=== PATIENT | female | born 2000 | race Two or more races ===

== ENCOUNTER 2022-02-01 19:26 | Observation (INO) ==
[2022-02-01 20:26] LABS: Basophils # (auto) 0.09 K/uL (0-0.2); Eosinophils # (auto) 0.07 K/uL (0-0.50); Eosinophils % (auto) 0.8 %; Hematocrit (blood only) 38.6 % (34.1-44.9); Hemoglobin 12.5 g/dl (12.0-16.0); Immature Granulocytes # (auto) 0.01 K/uL (0.00-0.02); Immature Granulocytes % (auto) 0.1 %; Lymphocytes # (auto) 2.79 K/uL (1.2-3.4); Lymphocytes % (auto) 30.9 %; Mean Corpuscular Hemoglobin 26.5 pg (25.0-34.0); Mean Corpuscular Hgb Conc 32.4 g/dL (32.0-36.0); Mean Corpuscular Volume 81.8 fL (80.0-100.0); Mean Platelet Volume 10.9 fL (9.4-12.3); Monocytes # (auto) 0.97 K/uL (0.24-0.82); Monocytes % (auto) 10.8 %; Neutrophils # (auto) 5.09 K/uL (1.4-6.5); Neutrophils % (auto) 56.4 %; Platelet Count 284 K/uL (130-400); RDW Coefficient of Variation 13.1 % (11.5-14.5); Red Blood Count 4.72 M/uL (3.93-5.22); White Blood Count 9.02 K/ul (4.8-10.8)
[2022-02-01 20:42] LABS: INR 1.1 (0.9-1.1); Partial Thromboplastin Ratio 0.9; Partial Thromboplastin Time 25.6 Seconds (21.0-31.0); Prothrombin Time 11.3 Seconds (9.0-12.0)
[2022-02-01 20:51] LABS: Albumin Globulin Ratio 1.9 (0.9-2); Albumin Level 4.9 gm/dl (3.4-5.0); BUN Creatinine Ratio 8.9 (10-20); Bilirubin,Total 0.5 mg/dl (0.2-1.0); Calcium 9.3 mg/dl (8.5-10.1); Creatinine Clr Calc Pharmacy 98.1 ml/min; Est GFR (African American) 124.9 ml/min; Est GFR (Non-African American) 107.8 ml/min; Globulin 2.6 gm/dl (2.5-4.0); Potassium 3.5 mmol/L (3.5-5.1); Total Protein 7.5 gm/dl (6.0-8.3)
[2022-02-01 21:03] LABS: Troponin I High Sensitivity 65.7 pg/ml (0-14)
[2022-02-01] MEDS ORDERED: ASPIRIN CHEW 324 MG PO STA (21:17)
--- NOTE | 2022-02-01 21:26 | Emergency Department Note ---
Impression & Plan Chest pressure, Elevated troponin I level ED Provider Note Provider: German Kim MD DATE OF SERVICE: 02/01/2022 CHIEF COMPLAINT: Chest pressure, shortness of breath HISTORY OF PRESENT ILLNESS: Patient is a 21-year-old female otherwise healthy presenting today with the onset since she woke this morning some pressure in her chest. States it was fairly heavy pressure earlier with some associated shortness of breath. Denies recent URI symptoms. States she has been under some stress. Denies leg swelling or recent travel. Denies abdominal upset. Patient states the pressure has decreased some. Denies a history of heart issues. Not on control or OCPs. REVIEW OF SYSTEMS: A total of 10 review of systems was obtained and negative except as stated above in the HPI. PAST MEDICAL HISTORY: As noted above MEDICATIONS: Current prescription medication SOCIAL HISTORY: Vapes, denies other drug use or alcohol use. Originally from [facility] here for college PHYSICAL EXAM: GENERAL: alert and oriented in no acute distress on stretcher Head: normocephalic and atraumatic EYES: No injection, discharge or icterus. NECK: Trachea midline. ENT: Mucous membranes pink and moist. LUNGS: Airway patent. No retractions. Breath sounds clear with good air entry bilaterally. HEART: Regular rate and rhythm. No chest wall tenderness ABDOMEN: Soft and non-tender, without guarding or rebound. SKIN: Acyanotic, warm, dry, without rashes EXTREMITIES: Without swelling, tenderness or deformity NEUROLOGICAL: No focal deficits. No aphasia. No facial droop or slurred speech. Ambulatory. EK bpm. Normal sinus rhythm with sinus arrhythmia. No PVC or PAC. No acute ST segment elevation or depression with a QTC of 411. CONTINUOUS CARDIAC MONITORING: was ordered and showed a heart rate of 80s bpm in normal sinus rhythm Patient's laboratory studies and imaging reviewed. Differential includes Cardiac ischemia, aortic dissection, pulmonary embolism, pneumothorax, pneumonia, pericarditis, myocarditis, esophageal rupture, GERD, cholecystitis, pancreatitis, musculoskeletal, as well as other pathologies. IMPRESSION/MEDICAL DECISION MAKING: Patient with some chest pressure. No significant cardiac risk factors or PE risk factors related. No denies recent URI symptoms or fevers. No abdominal symptoms reported. No leg swelling. Not hypoxic here significantly tachycardic or with significant arrhythmia. EKG is reassuring. Blood work here is generally reassuring as well without significant anemia or leukocytosis. Troponin however is elevated to 65. In this young and healthy thin 21-year-old unsure of this exact etiology. Could represent possibly myocarditis but no evidence of heart failure and would seem highly atypical for ACS. We will complete a CT of the chest to exclude PE as a possible inciting event. Does not seem to be significantly hypotensive or dehydrated to induce a demand state. Respiratory viral panel was sent. Given some aspirin here. CT report reviewed. Will bring to the hospital for further evaluation given the elevated troponin trending and work-up. DIAGNOSIS: Chest pressure, elevated troponin DISPOSITION: Hospitalist will evaluate Patient was agreeable with this plan. Preliminary Findings Only See Final Report For Complete Findings CTA CHEST: There is no evidence for PE No acute airspace disease or effusions The heart size is normal Radiologist: Zachary Simmons MD Study ready at 23:07 and initial results transmitted at 23:24 Past Med/Surg History Social History Smoking Status: Current every day smoker Tobacco Type: E-cigarettes / Vaping Preferred Language: Guamanian Feels Safe at Home: Yes Allergies Allergies Allergy/AdvReac Type Severity Reaction Status Date / Time No Known Allergies Allergy Unverified 02/02/22 00:32 Home Meds Home Medications Medication Instructions Recorded Confirmed Sugarbear Collagen 1 tab PO 2XWK 02/02/22 02/02/22 Results & Data (ED) Vital Signs Vital Signs - 24 hr 02/01/22 19:33 02/01/22 20:58 02/01/22 20:58 Temperature 36.5 C Temperature Source Temporal Artery Scan Pulse Rate 104 H Pulse Rate [Finger] 75 Pulse Rhythm [Finger] Regular Pulse Strength [Finger] Normal Respiratory Rate 18 18 Respiratory Effort / Characteristics Non-Labored Spontaneous Respiratory Depth Normal Normal Respiratory Pattern Regular Blood Pressure 120/72 Blood Pressure [Right Arm] 107/66 Blood Pressure Mean 88 Blood Pressure Mean [Right Arm] 79 Blood Pressure Position [Right Arm] Pulse Oximetry 100 98 98 Oxygen Delivery Method Room Air Room Air Room Air Sepsis New/Unexplained Change in Mental Status N/A Sepsis Action Taken by Nursing No Action Required 02/01/22 22:10 02/01/22 23:20 Temperature Temperature Source Pulse Rate Pulse Rate [Finger] 86 88 Pulse Rhythm [Finger] Regular Pulse Strength [Finger] Normal Respiratory Rate 19 16 Respiratory Effort / Characteristics Non-Labored Spontaneous Non-Labored Spontaneous Respiratory Depth Normal Normal Respiratory Pattern Regular Blood Pressure Blood Pressure [Right Arm] 110/57 L 113/66 Blood Pressure Mean Blood Pressure Mean [Right Arm] 74 81 Blood Pressure Position [Right Arm] Sitting Pulse Oximetry 98 99 Oxygen Delivery Method Sepsis New/Unexplained Change in Mental Status Sepsis Action Taken by Nursing Laboratory Data Result diagrams: 02/01/22 20:03 02/01/22 20:03 Lab Results 02/01/22 02/01/22 02/01/22 Range/Units 20:03 20:03 20:03 WBC 9.02 (4.8-10.8) K/ul RBC 4.72 (3.93-5.22) M/uL Hgb 12.5 (12.0-16.0) g/dl Hct 38.6 (34.1-44.9) % MCV 81.8 (80.0-100.0) fL MCH 26.5 (25.0-34.0) pg MCHC 32.4 (32.0-36.0) g/dL RDW Std Deviation 39.0 (36.4-46.3) fL RDW Coeff of Tony 13.1 (11.5-14.5) % Plt Count 284 (130-400) K/uL MPV 10.9 (9.4-12.3) fL Immature Gran % (Auto) 0.1 % Neut % (Auto) 56.4 % Lymph % (Auto) 30.9 % [place] % (Auto) 10.8 % Eos % (Auto) 0.8 % Baso % (Auto) 1.0 % Neut # (Auto) 5.09 (1.4-6.5) K/uL Lymph # (Auto) 2.79 (1.2-3.4) K/uL [place] # (Auto) 0.97 H (0.24-0.82) K/uL Eos # (Auto) 0.07 (0-0.50) K/uL Baso # (Auto) 0.09 (0-0.2) K/uL Immature Gran # (Auto) 0.01 (0.00-0.02) K/uL PT 11.3 (9.0-12.0) Seconds INR 1.1 (0.9-1.1) APTT 25.6 (21.0-31.0) Seconds PTT Ratio 0.9 Sodium 138 (136-145) mmol/L Potassium 3.5 (3.5-5.1) mmol/L Chloride 103 (98-107) mmol/L Carbon Dioxide 28 (21-32) mmol/L Anion Gap 7 (3-11) BUN 7 (6-23) mg/dl Creatinine 0.79 (0.6-1.2) mg/dl Est Cr Clr Drug Dosing 98.1 ml/min Est GFR ( Amer) 124.9 ml/min Est GFR (Non-Af Amer) 107.8 ml/min BUN/Creatinine Ratio 8.9 L (10-20) Glucose 91 (70-99(Fasting)) mg/dl Calcium 9.3 (8.5-10.1) mg/dl Total Bilirubin 0.5 (0.2-1.0) mg/dl AST 14 (13-39) U/L ALT 7 (7-52) U/L Alkaline Phosphatase 63 (34-104) U/L Troponin I High Sens 65.7 H* (0-14) pg/ml Total Protein 7.5 (6.0-8.3) gm/dl Albumin 4.9 (3.4-5.0) gm/dl Globulin 2.6 (2.5-4.0) gm/dl Albumin/Globulin Ratio 1.9 (0.9-2) HCG, Qual (Negative) Adenovirus (PCR) (NotDetected) B. pertussis DNA (PCR) (NotDetected) B.parapertussis DNA PCR (NotDetected) C. pneumoniae DNA (PCR) (NotDetected) Coronavirus OC43 (PCR) (NotDetected) Coronavirus HKU1 (PCR) (NotDetected) Coronavirus 229E (PCR) (NotDetected) SARS-CoV-2 (PCR) (NotDetected) Coronavirus NL63 (PCR) (NotDetected) Human Metapneumovir PCR (NotDetected) Influenza Type A (PCR) (NotDetected) Influenza Type B (PCR) (NotDetected) M. pneumoniae (PCR) (NotDetected) Parainfluenza 1 (PCR) (NotDetected) Parainfluenza 2 (PCR) (NotDetected) Parainfluenza 3 (PCR) (NotDetected) Parainfluenza 4 (PCR) (NotDetected) RSV (PCR) (NotDetected) Entero/Rhino (PCR) (NotDetected) 02/01/22 02/01/22 Range/Units 20:03 21:26 WBC (4.8-10.8) K/ul RBC (3.93-5.22) M/uL Hgb (12.0-16.0) g/dl Hct (34.1-44.9) % MCV (80.0-100.0) fL MCH (25.0-34.0) pg MCHC (32.0-36.0) g/dL RDW Std Deviation (36.4-46.3) fL RDW Coeff of Tony (11.5-14.5) % Plt Count (130-400) K/uL MPV (9.4-12.3) fL Immature Gran % (Auto) % Neut % (Auto) % Lymph % (Auto) % [place] % (Auto) % Eos % (Auto) % Baso % (Auto) % Neut # (Auto) (1.4-6.5) K/uL Lymph # (Auto) (1.2-3.4) K/uL [place] # (Auto) (0.24-0.82) K/uL Eos # (Auto) (0-0.50) K/uL Baso # (Auto) (0-0.2) K/uL Immature Gran # (Auto) (0.00-0.02) K/uL PT (9.0-12.0) Seconds INR (0.9-1.1) APTT (21.0-31.0) Seconds PTT Ratio Sodium (136-145) mmol/L Potassium (3.5-5.1) mmol/L Chloride (98-107) mmol/L Carbon Dioxide (21-32) mmol/L Anion Gap (3-11) BUN (6-23) mg/dl Creatinine (0.6-1.2) mg/dl Est Cr Clr Drug Dosing ml/min Est GFR ( Amer) ml/min Est GFR (Non-Af Amer) ml/min BUN/Creatinine Ratio (10-20) Glucose (70-99(Fasting)) mg/dl Calcium (8.5-10.1) mg/dl Total Bilirubin (0.2-1.0) mg/dl AST (13-39) U/L ALT (7-52) U/L Alkaline Phosphatase (34-104) U/L Troponin I High Sens (0-14) pg/ml Total Protein (6.0-8.3) gm/dl Albumin (3.4-5.0) gm/dl Globulin (2.5-4.0) gm/dl Albumin/Globulin Ratio (0.9-2) HCG, Qual Negative (Negative) Adenovirus (PCR) Not Detected (NotDetected) B. pertussis DNA (PCR) Not Detected (NotDetected) B.parapertussis DNA PCR Not Detected (NotDetected) C. pneumoniae DNA (PCR) Not Detected (NotDetected) Coronavirus OC43 (PCR) Not Detected (NotDetected) Coronavirus HKU1 (PCR) Not Detected (NotDetected) Coronavirus 229E (PCR) Not Detected (NotDetected) SARS-CoV-2 (PCR) Not Detected (NotDetected) Coronavirus NL63 (PCR) Not Detected (NotDetected) Human Metapneumovir PCR Not Detected (NotDetected) Influenza Type A (PCR) Not Detected (NotDetected) Influenza Type B (PCR) Not Detected (NotDetected) M. pneumoniae (PCR) Not Detected (NotDetected) Parainfluenza 1 (PCR) Not Detected (NotDetected) Parainfluenza 2 (PCR) Not Detected (NotDetected) Parainfluenza 3 (PCR) Not Detected (NotDetected) Parainfluenza 4 (PCR) Not Detected (NotDetected) RSV (PCR) Not Detected (NotDetected) Entero/Rhino (PCR) Not Detected (NotDetected) Administered Medications Discontinued Medications Aspirin (Aspirin Chew 324 Mg) 324 mg PO NOW STA Stop: 02/01/22 21:18 Last Admin: 02/01/22 21:24 Dose: 324 mg Documented By: TRISTON Ioversol (Optiray 300 500ml) 116 ml IV ONCE ONE Stop: 02/01/22 21:41 Last Admin: 02/01/22 21:41 Dose: 116 ml Documented By: SERGIO Discharge Plan Visit Data Chief Complaint: Chest Pain Stated Complaint: CHEST PAIN, BREATHING DIFFICULTY ED Provider: German Kim Discharge Problem: Chest pressure, Elevated troponin I level Forms Stand Alone Forms: [employer] Prescriptions Prescriptions: No Action Sugarbear Collagen 1 tab PO 2XWK Referrals Referrals: PCP,NO [Physician] -
[2022-02-01] MEDS ORDERED: OPTIRAY 300 500mL IV ONE (21:40)
[2022-02-01 21:54] LABS: Pregnancy Test, Serum Negative (Negative)
[2022-02-01 22:31] LABS: Adenovirus PCR Not Detected (NotDetected); Bordetella parapertussis PCR Not Detected (NotDetected); Bordetella pertussis PCR Not Detected (NotDetected); Chlamydia pneumoniae PCR Not Detected (NotDetected); Coronavirus 229E PCR Not Detected (NotDetected); Coronavirus CoV-2 (COVID19)PCR Not Detected (NotDetected); Coronavirus HKU1 PCR Not Detected (NotDetected); Coronavirus NL63 PCR Not Detected (NotDetected); Coronavirus OC43PCR Not Detected (NotDetected); Human Metapneumovirus PCR Not Detected (NotDetected); Influenza A PCR Not Detected (NotDetected); Influenza B PCR Not Detected (NotDetected); Mycoplasma pneumoniae PCR Not Detected (NotDetected); Parainfluenza Virus 1 PCR Not Detected (NotDetected); Parainfluenza Virus 2 PCR Not Detected (NotDetected); Parainfluenza Virus 3 PCR Not Detected (NotDetected); Parainfluenza Virus 4 PCR Not Detected (NotDetected); Respiratory Syncytial VirusPCR Not Detected (NotDetected); Rhinovirus/Enterovirus PCR Not Detected (NotDetected)
--- NOTE | 2022-02-02 01:01 | History & Physical Report ---
Date of Service February 02, 2022 Assessment & Plan (1) Chest pressure: Plan: Patient is a 21 yo female with no significant past medical history admitted to [facility] on 02/02/22 due to chest pressure and elevated troponin. Chest pressure with elevated HS-troponin - Patient woke up this morning with chest pressure that improved throughout the day - She is currently pain free; does report some persistent SOB described as "needing to take a deep breath in 2 stages" - Chest CTA with no evidence of PE - Patient does admit to frequent vape use -- discussed importance of vape cessation with patient - HS-troponin in the ER 65.7 --> repeat on admission 148.8 - EKG in ER with NSR, rate 83, no acute ST or T wave changes - Given increase in troponin on admission, will repeat EKG now - Will continue to trend troponin to peak - TTE ordered - Monospot w/ reflex to EBV ordered - Patient has not seen physician in the [place] (she is from [facility], getting degree at [employer]) -- will get lipid profile, A1c, and TSH in AM for complet e work up - Monitor CBC and BMP - Cardiology consulted - Admit to tele for continuous cardiac monitoring (2) Elevated troponin I level: History of Present Illness Chief Complaint: chest pain Primary Care Provider: [facility] Patient is a 21 yo female with no significant past medical hx who presented with complaint of chest pain. Patient states that she woke up this morning around 0700 with substernal chest pressure. At worst, the pressure was rated at a 4/10. She did not take any medication including no Tylenol nor Ibuprofen for her symptoms. Patient did have associated SOB with the pressure which she describes as inability to take a deep breath. She notes that she is typically very active and regularly engages in high intensity cardio at the gym. However, over the past couple of days, patient has had exertional fatigue and SOB with minimal activity, like walking up a flight of stairs. She denies recent illness. Patient has no other symptoms including fever, chills, cough, abdominal pain, n ausea, vomiting, urinary symptoms, REYES, lightheadedness, dizziness, extremity pain, or extremity swelling. Patient lives with a roommate who has not had similar symptoms. 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 She is from [facility], which is where all of her family is still residing. Patient does report vaping but otherwise denies drug use including marijuana use. Denies alcohol use. Patient is not sexually active. She is not on control including no hx of OCP use. She has had no recent travel including no long car rides or flights. Patient denies use of creatine or protein powder. She does report drinking Red Bull occasionally but no other reported caffeine use. Patient's mother has a cardiac hx significant for abnormal EKG and low heart rate which required pacemaker placement in her early 40s; patient is not aware of the actual diagnosis. There is no other family hx of cardiac problems. In the ER, patient was noted to have an HS-troponin at 65.7. She did receive 324mg ASA. Chest CTA with no evidence for PE. CBC unremarkable w/o leukocytosis or anemia. CMP unremarkable w/o electrolyte abnormalities. HCG negative. [employer] viral panel negative including COVID negative. Allergies Allergy/AdvReac Type Severity Reaction Status Date / Time No Known Allergies Allergy Unverified 02/02/22 00:32 Home Medications Medication Instructions Recorded Confirmed Type Sugarbear Collagen 1 tab PO 2XWK 02/02/22 02/02/22 History colchicine 0.6 mg tablet 0.6 mg PO DAILY 30 days #30 tabs 02/02/22 Rx Past Med/Surg History Social History Smoking Status: Current every day smoker Tobacco Type: E-cigarettes / Vaping Hx Alcohol Use: No Hx Substance Use: No Preferred Language: Indonesian Communication Ability: Effective Alloy Weigher Required: No Beliefs That Will Affect Care: Spiritism Current Living Situation: Other Current Living Situation Comment: roommates Feels Safe at Home: Yes Assistive Devices: None Review of Systems Review of Systems: See HPI Physical Exam Physical Exam: GENERAL: No acute distress. Well developed and well nourished. Vital signs reviewed as above. EYES: PERRLA. EOMI. Anicteric sclerae. HENT: Moist mucous membranes. No pharyngeal erythema or exudates. RESPIRATORY: Clear to auscultation bilaterally. No wheezing, rales, or rhonchi. CARDIOVASCULAR: Regular rate and rhythm. No murmurs. No JVD. ABDOMEN: Soft, non-tender and non-distended. Normal bowel sounds. EXTREMITIES: No edema. Non-tender. SKIN: Warm, dry. NEUROLOGIC: A/O x3. Normal speech. No focal neurological deficits. 5/5 strength in BUE and BLE. PSYCHIATRIC: Cooperative. Appropriate mood and affect. Results & Data Results & Data ([facility]) Vital Signs (Past 12 Hours) Vital Signs Temp Pulse Pulse Resp BP BP Pulse Ox 02/01/22 23:20 88 16 113/66 99 02/01/22 22:10 86 19 110/57 L 98 02/01/22 20:58 75 18 107/66 98 02/01/22 20:58 98 02/01/22 19:33 36.5 C 104 H 18 120/72 100 O2 Del Method 02/01/22 23:20 02/01/22 22:10 02/01/22 20:58 Room Air 02/01/22 20:58 Room Air 02/01/22 19:33 Room Air Laboratory Results 02/01/22 02/01/22 02/01/22 Range/Units 23:54 21:26 20:03 WBC (4.8-10.8) K/ul RBC (3.93-5.22) M/uL Hgb (12.0-16.0) g/dl Hct (34.1-44.9) % MCV (80.0-100.0) fL MCH (25.0-34.0) pg MCHC (32.0-36.0) g/dL RDW Std Deviation (36.4-46.3) fL RDW Coeff of Tony (11.5-14.5) % Plt Count (130-400) K/uL MPV (9.4-12.3) fL Immature Gran % (Auto) % Neut % (Auto) % Lymph % (Auto) % [place] % (Auto) % Eos % (Auto) % Baso % (Auto) % Neut # (Auto) (1.4-6.5) K/uL Lymph # (Auto) (1.2-3.4) K/uL [place] # (Auto) (0.24-0.82) K/uL Eos # (Auto) (0-0.50) K/uL Baso # (Auto) (0-0.2) K/uL Immature Gran # (Auto) (0.00-0.02) K/uL PT (9.0-12.0) Seconds INR (0.9-1.1) APTT (21.0-31.0) Seconds PTT Ratio Sodium (136-145) mmol/L Potassium (3.5-5.1) mmol/L Chloride (98-107) mmol/L Carbon Dioxide (21-32) mmol/L Anion Gap (3-11) BUN (6-23) mg/dl Creatinine (0.6-1.2) mg/dl Est Cr Clr Drug Dosing ml/min Est GFR ( Amer) ml/min Est GFR (Non-Af Amer) ml/min BUN/Creatinine Ratio (10-20) Glucose (70-99(Fasting)) mg/dl Calcium (8.5-10.1) mg/dl Total Bilirubin (0.2-1.0) mg/dl AST (13-39) U/L ALT (7-52) U/L Alkaline Phosphatase (34-104) U/L Troponin I High Sens Pending (0-14) pg/ml Total Protein (6.0-8.3) gm/dl Albumin (3.4-5.0) gm/dl Globulin (2.5-4.0) gm/dl Albumin/Globulin Ratio (0.9-2) HCG, Qual Negative (Negative) Adenovirus (PCR) Not Detected (NotDetected) B. pertussis DNA (PCR) Not Detected (NotDetected) B.parapertussis DNA PCR Not Detected (NotDetected) C. pneumoniae DNA (PCR) Not Detected (NotDetected) Coronavirus OC43 (PCR) Not Detected (NotDetected) Coronavirus HKU1 (PCR) Not Detected (NotDetected) Coronavirus 229E (PCR) Not Detected (NotDetected) SARS-CoV-2 (PCR) Not Detected (NotDetected) Coronavirus NL63 (PCR) Not Detected (NotDetected) Human Metapneumovir PCR Not Detected (NotDetected) Influenza Type A (PCR) Not Detected (NotDetected) Influenza Type B (PCR) Not Detected (NotDetected) M. pneumoniae (PCR) Not Detected (NotDetected) Parainfluenza 1 (PCR) Not Detected (NotDetected) Parainfluenza 2 (PCR) Not Detected (NotDetected) Parainfluenza 3 (PCR) Not Detected (NotDetected) Parainfluenza 4 (PCR) Not Detected (NotDetected) RSV (PCR) Not Detected (NotDetected) Entero/Rhino (PCR) Not Detected (NotDetected) 02/01/22 02/01/22 02/01/22 Range/Units 20:03 20:03 20:03 WBC 9.02 (4.8-10.8) K/ul RBC 4.72 (3.93-5.22) M/uL Hgb 12.5 (12.0-16.0) g/dl Hct 38.6 (34.1-44.9) % MCV 81.8 (80.0-100.0) fL MCH 26.5 (25.0-34.0) pg MCHC 32.4 (32.0-36.0) g/dL RDW Std Deviation 39.0 (36.4-46.3) fL RDW Coeff of Tony 13.1 (11.5-14.5) % Plt Count 284 (130-400) K/uL MPV 10.9 (9.4-12.3) fL Immature Gran % (Auto) 0.1 % Neut % (Auto) 56.4 % Lymph % (Auto) 30.9 % [place] % (Auto) 10.8 % Eos % (Auto) 0.8 % Baso % (Auto) 1.0 % Neut # (Auto) 5.09 (1.4-6.5) K/uL Lymph # (Auto) 2.79 (1.2-3.4) K/uL [place] # (Auto) 0.97 H (0.24-0.82) K/uL Eos # (Auto) 0.07 (0-0.50) K/uL Baso # (Auto) 0.09 (0-0.2) K/uL Immature Gran # (Auto) 0.01 (0.00-0.02) K/uL PT 11.3 (9.0-12.0) Seconds INR 1.1 (0.9-1.1) APTT 25.6 (21.0-31.0) Seconds PTT Ratio 0.9 Sodium 138 (136-145) mmol/L Potassium 3.5 (3.5-5.1) mmol/L Chloride 103 (98-107) mmol/L Carbon Dioxide 28 (21-32) mmol/L Anion Gap 7 (3-11) BUN 7 (6-23) mg/dl Creatinine 0.79 (0.6-1.2) mg/dl Est Cr Clr Drug Dosing 98.1 ml/min Est GFR ( Amer) 124.9 ml/min Est GFR (Non-Af Amer) 107.8 ml/min BUN/Creatinine Ratio 8.9 L (10-20) Glucose 91 (70-99(Fasting)) mg/dl Calcium 9.3 (8.5-10.1) mg/dl Total Bilirubin 0.5 (0.2-1.0) mg/dl AST 14 (13-39) U/L ALT 7 (7-52) U/L Alkaline Phosphatase 63 (34-104) U/L Troponin I High Sens 65.7 H* (0-14) pg/ml Total Protein 7.5 (6.0-8.3) gm/dl Albumin 4.9 (3.4-5.0) gm/dl Globulin 2.6 (2.5-4.0) gm/dl Albumin/Globulin Ratio 1.9 (0.9-2) HCG, Qual (Negative) Adenovirus (PCR) (NotDetected) B. pertussis DNA (PCR) (NotDetected) B.parapertussis DNA PCR (NotDetected) C. pneumoniae DNA (PCR) (NotDetected) Coronavirus OC43 (PCR) (NotDetected) Coronavirus HKU1 (PCR) (NotDetected) Coronavirus 229E (PCR) (NotDetected) SARS-CoV-2 (PCR) (NotDetected) Coronavirus NL63 (PCR) (NotDetected) Human Metapneumovir PCR (NotDetected) Influenza Type A (PCR) (NotDetected) Influenza Type B (PCR) (NotDetected) M. pneumoniae (PCR) (NotDetected) Parainfluenza 1 (PCR) (NotDetected) Parainfluenza 2 (PCR) (NotDetected) Parainfluenza 3 (PCR) (NotDetected) Parainfluenza 4 (PCR) (NotDetected) RSV (PCR) (NotDetected) Entero/Rhino (PCR) (NotDetected) Diagnostic Findings [facility] Patient: MERARI YODER (Female) : 2 Status: ER Date: 02/01/22 21:48 Room #: History: PE, +trop, CP/sob Slices: [id number] Priors: Tech: Riley Regalado @ [phone] Exams: CTA CHEST Contrast: IV Amt: 116 Accession Numbers: [id number] Referring Physician: DAVON ANGULO Preliminary Findings Only See Final Report For Complete Findings CTA CHEST: There is no evidence for PE No acute airspace disease or effusions The heart size is normal Radiologist: Zachary Simmons MD Study ready at 23:07 and initial results transmitted at 23:24 *This report constitutes a preliminary interpretation only. Non-acute findings felt to be unrelated to the clinical presentation may not be discussed in this report. The study will be interpreted and a final report will be generated by the local Radiologist the following shift. To reach the hospital radiology department call [phone]. If a discrepancy is found between the preliminary and final interpretations of this study, please notify us via our Client Portal at [email or web address]. You can also fax this report with a description of the discrepancy, or include the final report, to our daytime fax number [phone]. If faxing, please indicate the severity of discrepancy using one of the following categories: [ ] 1 - Agree/Informational [ ] 2 - Unlikely to Affect Management [ ] 3 - Possible Eventual Change of Management [ ] 4 - Probable Immediate Change of Management For all other patient related information, please fax us at [phone]. [id number] ECG Indication: chest pain Rate (beats per minute): 83 Rhythm: normal sinus Findings: no ST elevation Comparison ECG Date: no prior available Supervising Physician Co-Signing Physician Notes Attending addendum: I have physically seen this patient, have supervised the medical residents activities, and agree with the H&P unless as otherwise noted. Assessment and Plan: Elevated troponin/chest pressure- The patient will be admitted to telemetry for serial cardiac enzymes, serial EKG's, cardiac rhythm monitoring and a 2-D echocardiogram with Dopplers. Troponin 65.7, with repeat increased to 148.8 The patient will be admitted to telemetry for serial cardiac enzymes, serial EKG's, cardiac rhythm monitoring and a 2-D echocardiogram with Dopplers. Viral panel negative, but order a Monospot with reflex History of vaping, cessation encouraged Remaining orders and notations as noted Resident Activity Tracking Resident Involvement: Resident Care Provided Care Provided: Adult Hospital Medicine
[2022-02-02] MEDS ORDERED: ACETAMINOPHEN 325 MG TAB PO PRN (03:27)
[2022-02-02] MEDS ORDERED: ALUMINUM/MAGNESIUM SUSP 30 ML UDC PO PRN (03:27)
[2022-02-02] MEDS ORDERED: SODIUM CHLORIDE 0.9% 1000ML 1,000 ML IV SCH (03:27)
[2022-02-02] MEDS ORDERED: ONDANSETRON INJ 2 MG/ML 2 ML VIAL IV PRN (03:27)
[2022-02-02 06:40] LABS: Hematocrit (blood only) 36.9 % (34.1-44.9); Hemoglobin 12.1 g/dl (12.0-16.0); Mean Corpuscular Hemoglobin 26.6 pg (25.0-34.0); Mean Corpuscular Hgb Conc 32.8 g/dL (32.0-36.0); Mean Corpuscular Volume 81.1 fL (80.0-100.0); Mean Platelet Volume 10.7 fL (9.4-12.3); Platelet Count 273 K/uL (130-400); RDW Coefficient of Variation 13.2 % (11.5-14.5); RDW Standard Deviation 38.7 fL (36.4-46.3); Red Blood Count 4.55 M/uL (3.93-5.22)
[2022-02-02 07:06] LABS: BUN Creatinine Ratio 14.3 (10-20); Calcium 8.7 mg/dl (8.5-10.1); Chol HDL Ratio 2.6 (0-5); Est GFR (African American) 149.7 ml/min; Est GFR (Non-African American) 129.1 ml/min; Potassium 3.7 mmol/L (3.5-5.1)
[2022-02-02 07:14] LABS: Troponin I High Sensitivity 120.9 pg/ml (0-14)
[2022-02-02 07:16] LABS: Thyroid Stimulating Hormone 8.866 uIu/ml (0.300-4.500)
[2022-02-02 07:38] LABS: Estimated Average Glucose 111 mg/dl; Hemoglobin A1C 5.5 % (4.5-5.6)
[2022-02-02 07:50] LABS: T4 Free Thyroxine 0.75 ng/dl (0.61-1.60)
--- NOTE | 2022-02-02 09:05 | CT Scan Report ---
CT ANGIOGRAPHY OF THE CHEST, PULMONARY EMBOLUS PROTOCOL CLINICAL HISTORY: PE, +trop, CP/sob COMPARISON STUDY: No previous studies for comparison. TECHNIQUE: Following IV administration of 116 mL of Optiray, helical axial images of the chest were o btained utilizing the pulmonary embolus protocol. Maximal intensity projections and sagittal and cor onal reformats were viewed on an independent 3D workstation. IV contrast was administered without co mplication. Automated exposure control was utilized for the study. A dose lowering technique was ut ilized adhering to the principles of ALARA. CT DOSE: 239.94 mGy.cm FINDINGS: No pulmonary emboli are identified. There is no thoracic aortic dissection. Size of the he art is normal. There is no pericardial effusion. There is no thoracic lymphadenopathy. No pneumothora x or pleural effusion is present. There is no consolidation to suggest pneumonia. Central airways are patent. No acute fracture or suspicious lesion within the visualized bony thorax is noted. Visualize d portions of the upper abdomen are unremarkable. IMPRESSION: 1. No pulmonary emboli identified. 2. No acute intrathoracic findings. ACT 112: Negative or not required by law. Electronically signed by: Max Mcgee M.D. 02/02/2022 9:02 AM
--- NOTE | 2022-02-02 09:58 | Discharge Summary ---
Date of Service February 02, 2022 Admission HPI Per Admitting Provider Patient is a 21 yo female with no significant past medical hx who presented with complaint of chest pain. Patient states that she woke up this morning around 0700 with substernal chest pressure. At worst, the pressure was rated at a 4/10. She did not take any medication including no Tylenol nor Ibuprofen for her symptoms. Patient did have associated SOB with the pressure which she describes as inability to take a deep breath. She notes that she is typically very active and regularly engages in high intensity cardio at the gym. However, over the past couple of days, patient has had exertional fatigue and SOB with minimal activity, like walking up a flight of stairs. She denies recent illness. Patient has no other symptoms including fever, chills, cough, abdominal pain, nausea, vomiting, urinary symptoms, REYES, lightheadedness, dizziness, extremity pain, or extremity swelling. Patient lives with a roommate who has not had similar symptoms. 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 She is from [place] [facility], which is where all of her family is still residing. Patient does report vaping but otherwise denies drug use including marijuana use. Denies alcohol use. Patient is not sexually active. She is not on control including no hx of OCP use. She has had no recent travel including no long car rides or flights. Patient denies use of creatine or protein powder. She does report drinking Red Bull occasionally but no other reported caffeine use. Patient's mother has a cardiac hx significant for abnormal EKG and low heart rate which required pacemaker placement in her early 40s; patient is not aware of the actual diagnosis. There is no other family hx of cardiac problems. In the ER, patient was noted to have an HS-troponin at 65.7. She did receive 324mg ASA. Chest CTA with no evidence for PE. CBC unremarkable w/o leukocytosis or anemia. CMP unremarkable w/o electrolyte abnormalities. HCG negative. Biofire viral panel negative including COVID negative. Admission Exam Per Admitting Provider GENERAL: No acute distress. Well developed and well nourished. Vital signs reviewed as above. EYES: PERRLA. EOMI. Anicteric sclerae. HENT: Moist mucous membranes. No pharyngeal erythema or exudates. RESPIRATORY: Clear to auscultation bilaterally. No wheezing, rales, or rhonchi. CARDIOVASCULAR: Regular rate and rhythm. No murmurs. No JVD. ABDOMEN: Soft, non-tender and non-distended. Normal bowel sounds. EXTREMITIES: No edema. Non-tender. SKIN: Warm, dry. NEUROLOGIC: A/O x3. Normal speech. No focal neurological deficits. 5/5 strength in BUE and BLE. PSYCHIATRIC: Cooperative. Appropriate mood and affect. Principal Diagnosis Viral myocarditis Discharge Exam GENERAL: No acute distress. Well developed and well nourished HEENT: Moist mucous membranes. Anicteric sclerae. RESPIRATORY: Clear to auscultation bilaterally. No wheezing, rales, or rhonchi. CARDIOVASCULAR: Regular rate and rhythm. No murmurs. No JVD. ABDOMEN: Soft, non-tender and non-distended. Normal bowel sounds. EXTREMITIES: No edema. Non-tender. SKIN: Warm, dry. PSYCHIATRIC: Cooperative. Appropriate mood and affect. Discharge Data Allergies Allergy/AdvReac Type Severity Reaction Status Date / Time No Known Allergies Allergy Unverified 02/02/22 00:32 Consultations 02/01/22 23:38 ED Decision to Admit Stat 02/02/22 03:27 Consult Cardiology Routine Ordered Studies 02/01/22 21:07 CT angio chest PE protocol Urgent Hospital Course (1) Chest pressure: Patient is a 21 yo female with no significant past medical history admitted to [facility] on 02/02/22 due to chest pressure and elevated troponin. Chest pressure with elevated HS-troponin -Troponin HS 66 on admission, peak at 150 with downtrend to 80s -Chest CTA, EKG, CXR unremarkable -Lipids, A1C unremarkable -Echocardiogram unremarkable -Cardiology consulted- suspect likely viral myocarditis/pericarditis, recommend colchicine and f/u in 2 weeks as outpatient -Pt's chest pain and dyspnea resolved on admission and did not recur during hospitalization -Discharged with script for colchicine x3 months Elevated TSH -TSH of 9 on admission, free T4 normal -Likely transient elevation due to stress/illness state -Repeat in 4 weeks as outpatient (2) Elevated troponin I level: Total Time Total Time Spent Total Time Spent (In Minutes): <30 Discharge Plan Discharge Items Patient Disposition: Home - Self-Care Reason For Visit: ELEVATED TROPONIN Discharge Diagnosis: Myocarditis Activity: Resume your previous activity Non-emergency contact: Primary Care Provider and Special Projects Coordinator Call non-emergency contact if: you have any medication questions, your symptoms worsen and your pain is worsening Follow-up/Referrals: Ricky Hernandez MD, PhD [Physician] - (2 week appointment f/u) [facility] [Primary Care Provider] - Diet: Regular Addtl Attending Provider Instructions: You were admitted to the hospital for chest pain. We concluded the chest pain was most likely due to a viral infection (sometimes there are no symptoms) which caused heart inflammation called viral myocarditis. This will resolve with time and does not leave permanent injury to the heart. I recommend you try to reduce your frequency of vaping. Vaping use can lead to lung injury which could leave some scarring of your lung tissue and cause breathing problems later in life. You had an elevated TSH level which may imply you have low thyroid hormone production. Please have TSH rechecked by [facility] in 4 weeks to determine if your thyroid is truly low or if it's just a temporary elevation from being ill with viral myocarditis. A discharge summary will be sent to [facility] to ensure continuity of care. Please bring this discharge summary with you to your next office appointment so that your provider can review it at that time. Follow-up appointments: Please make a follow-up appointment with [facility] 1 week after your discharge today. You will also follow up with cardiology in 2 weeks. They will call you to schedule this appointment. Medications: Your medication list has been reviewed and reconciled upon discharge to ensure accuracy and continuity of care. An updated list of all your medications is included with your hospital discharge paperwork. Please review this list closely, and make note of any changes. We sent a new medication called colchicine to [facility] pharmacy. This medication is useful in preventing further episodes of chest pain from heart inflammation. Please take two colchicine tablets today and then only one tablet daily starting tomorrow for the next 3 months. Take your medications as instructed; do not skip a dose of your medicines. Make sure all of your doctors know every medicine you are taking (including [id number] medicines, vitamins, and supplements). Call your primary care provider before taking any new medicines (including yeto-pcs-jpxcgvb medicines, vitamins, and supplements), because some of these may interact with your current medications, or may make your symptoms worse. Tell your primary care provider if you cannot afford your medications. CONTACT [facility] if you experience any of the following: Chest pain Difficulty breathing Abdominal pain Nausea/vomiting Lightheadedness Dizziness Difficulty following your treatment plan, or difficulty taking medications CALL 911 OR GO TO THE EMERGENCY DEPARTMENT if you experience any of the following: Sudden, severe abdominal pain or nausea/vomiting Severe chest pain, or chest pain that radiates (moves) to your jaw or arm Sudden, severe shortness of breath or difficulty breathing Thank you for allowing us to participate in your care. Pending Studies at Discharge: No Stand-Alone Forms: My [facility] [employer], Work/School Release, Smoking Cessation Medications and DC Order Prescriptions: New colchicine 0.6 mg tablet 0.6 mg PO DAILY 30 Days Qty: 30 3RF Rx Instructions: Please take 2 tablets today and then 1 tablet starting tomorrow for the next 3 months. Continued Sugarbear Collagen 1 tab PO 2XWK Discharge Orders: Discharge Order (Routine); Ordered 02/02/22 Ordered By: Maddie Delvalle Admission Data Admit Date/Time: 02/02/22 01:12 Attending Provider: Indio Chavez Admit Provider: Altagracia Kyle Primary Care Provider: [facility] Other Providers: Juno Sandy ; Valentín Calderon Other Interventions: Discharge Summary Assessment (RN) Last Done: 02/02/22 10:27 Supervising Physician Co-Signing Physician Notes I personally examined the patient and verified all guevara points of history and exam, discussed case, and agree with decision making with Dr Delvalle feeling better pain resolving really wants to go home vitals noted nad heent nc at mmm breathing unlabored no accessory muscles good effort skin no rashes no pallor or icterus myocarditis - improving. colchicine. discussed staying for ongoing monitoring and risks (including ) but she expressed good understanding of risk/benefit and opts to go home otherwise as above Resident Activity Tracking Resident Involvement: Resident Care Provided Care Provided: Adult Hospital Medicine
--- NOTE | 2022-02-02 11:45 | Cardiology Consultation ---
Date of Consultation February 02, 2022 Assessment & Plan (1) Chest pressure: Chest discomfort is somewhat pleuritic in nature. Awaiting official interpretation of the echocardiogram to exclude cardiomyopathy, pericardial effusion, segmental wall motion abnormality. Suspect that this does not fact represent myocarditis of unknown etiology. Could be triggered by vape or unknown infection. If the echo is unrevealing then would initiate colchicine and/or nonsteroidal for discomfort. She will need additional follow-up as an outpatient. If infectious agent identified then treat appropriately for that. Probably most prudent to keep her for 24 hours of observation to ensure that she does not have a fulminant/rapidly progressive case of myocarditis. Additional recommendations pending results of the echocardiogram. She will need outpatient follow-up appointment within 2 weeks of discharge. History of Present Illness Reason for Consultation: Chest pain, abnormal troponin Attending Physician: Indio Chavez DO History of Present Illness Is a pleasant 21-year-old female from [facility] who is studying [employer] at [employer]. She developed sudden onset chest pressure occurring after she stood up in the morning. She came to the emergency department where she was found to have elevated cardiac troponin. No ischemic EKG changes on the EKG. I was asked to see her for probable myocarditis. Patient uses vape inhalation device on a daily basis, multiple times daily with various vape cartridges, and has been doing this for the past 3 years with increasing frequency. She denies use of illicit drugs or alcohol. Occasionally uses caffeinated energy drinks. She denies any recent viral illnesses. She had a COVID vaccination over a year ago without adverse effect. Her roommate has not had any recent illnesses. Patient notes that when she lies down she does not have any chest discomfort but when she stands up she notes pressure in the left anterior chest. Other than position change, she cannot identify any alleviating or exacerbating factors. Currently, she feels well and is not experiencing any discomfort. She did undergo echocardiogram earlier this morning but this has not yet been interpreted. Reportedly, no abnormalities identified by electronic security technician. Patient denies any syncope, near syncope, orthopnea, PND, racing heartbeat, palpitations, or edema. Denies fevers, chills, cough, sputum production, dysuria, hematuria, abdominal discomfort, nausea, vomiting, or diarrhea. No numbness, tingling, weakness. Allergies Allergy/AdvReac Type Severity Reaction Status Date / Time No Known Allergies Allergy Unverified 02/02/22 00:32 Home Medications Medication Instructions Recorded Confirmed Type Sugarbear Collagen 1 tab PO 2XWK 02/02/22 02/02/22 History Patient History Social History Smoking Status: Current every day smoker Tobacco Type: E-cigarettes / Vaping Hx Alcohol Use: No Hx Substance Use: No Preferred Language: Polish Communication Ability: Effective Counselor Aid Required: No Beliefs That Will Affect Care: None Current Living Situation: Other Current Living Situation Comment: roommates Other Information That Helps Us Care for You: No Feels Safe at Home: Yes Safety Concerns: Feels Safe At This Time Assistive Devices: Contacts and Glasses Review of Systems Review of Systems: Negative x12 point review except as per HPI. Physical Exam Constitutional: WD/WN, vitals as above Eyes: PERRL, conjunctivae normal, anicteric sclerae ENMT: external ear and nose normal, oropharynx normal Neck: trachea midline, no thyromegaly Respiratory: normal respiratory effort, lungs clear to auscultation Cardiovascular: RRR, no murmur, no edema Neurologic: Cognition is intact. Speech is fluent. No tremor. Psychiatric: A+Ox3, euthymic affect Results & Data ([facility]) Vital Signs (Past 12 Hours) Vital Signs Temp Pulse Pulse Pulse Resp BP BP 02/02/22 11:17 36.6 C 91 H 17 117/74 02/02/22 10:27 36.7 C 88 83 18 110/62 106/62 02/02/22 10:25 79 02/02/22 07:47 36.7 C 88 18 110/62 02/02/22 03:42 75 02/02/22 03:27 02/02/22 03:30 36.7 C 76 16 114/66 02/02/22 02:22 83 14 106/62 Pulse Ox Pulse Ox O2 Del Method O2 Del Method 02/02/22 11:17 100 Room Air 02/02/22 10:27 98 02/02/22 10:25 02/02/22 07:47 98 Room Air 02/02/22 03:42 02/02/22 03:27 98 Room Air 02/02/22 03:30 98 Room Air 02/02/22 02:22 98 PG Care Time/CCT Total # of Minutes Spent Total Time Spent with Patient: Total time spent is greater than 50% in coordination of care (as documented) at patient's floor/unit and/or counseling patient: [place] [address] Inpt Consult Level 2 Patient Type New Diagnoses Chest pressure R07.89
--- NOTE | 2022-02-02 13:30 | XCELERA ---
[id number]
--- NOTE | 2022-02-02 14:24 | Electrocardiogram Report ---
Test Reason : Blood Pressure : / mmHG Vent. Rate : 083 BPM Atrial Rate : 083 BPM P-R Int : 136 ms QRS Dur : 074 ms QT Int : 350 ms P-R-T Axes : 075 077 068 degrees QTc Int : 411 ms Normal sinus rhythm with sinus arrhythmia Normal ECG No previous ECGs available Confirmed by Roger Montiel ([id number]) on 02/02/2022 2:23:53 PM Referred By: [facility] Confirmed By:Roger Montiel
--- NOTE | 2022-02-02 14:30 | Electrocardiogram Report ---
Test Reason : Blood Pressure : / mmHG Vent. Rate : 071 BPM Atrial Rate : 071 BPM P-R Int : 148 ms QRS Dur : 080 ms QT Int : 386 ms P-R-T Axes : 078 077 069 degrees QTc Int : 419 ms Normal sinus rhythm with sinus arrhythmia Normal ECG When compared with ECG of 01-FEB-2022 19:48, (unconfirmed) No significant change was found Confirmed by Roger Montiel ([id number]) on 02/02/2022 2:30:23 PM Referred By: [facility] Confirmed By:Roger Montiel
--- NOTE | 2022-02-02 16:48 | Billing Data ---
Date of Service February 02, 2022 Coding Level of Care Code 04376 OBS Care - Discharge
--- NOTE | 2022-02-02 20:35 | Billing Data ---
Date of Service February 02, 2022 Coding Level of Care Code INT OBSERVATION CARE 70M LVL 3
[2022-02-03 15:02] LABS: EBV Nuclear Ag Antibody <18.00 U/mL; EBV Virus Capsid Ag IgG Ab <18.00 U/mL; Epstein Barr Virus Early Ag Ab <9.00 U/mL
== END 2022-02-02 15:30 | disposition home or self-care (01) ==
LOC: ED 19:26 → 2E 19:26 → SUATTDRO 02-02 01:12 → 2E 02-02 02:46
DX: E07.89 Other specified disorders of thyroid; R07.89 Other chest pain; F17.290 Nicotine dependence, other tobacco product, uncomplicated; R77.8 Other specified abnormalities of plasma proteins